=== PATIENT | male | born 1995 | race Two or more races ===

== ENCOUNTER 2019-08-26 19:17 | Emergency (ER) | payer SELFPAY ==
[~2019-08-26] VITALS: Ht 182.9 cm; Wt 95.3 kg
[2019-08-26 19:21] VITALS: BP 122/82
--- NOTE | 2019-08-26 19:21 | Emergency Room Report ---
History of Present Illness General Source: Patient Present Illness HPI Is a 23-year-old male presents after increased right-sided shoulder pain. Patient was lifting weights when suddenly he felt sharp pain to the right shoulder with decreased ability to move it. Denies any other locations of injury. Denies prior dislocation. Injury occurred just prior to arrival Allergies: Coded Allergies: No Known Allergies (Unverified , 08/26/19) Patient History Past Medical History: see triage record Reviewed Nursing Documentation: PMH: Agreed; PSxH: Agreed Review of Systems All Other Systems: negative except mentioned in HPI Physical Exam General Appearance: well appearing, no apparent distress, alert, GCS 15 Head: normocephalic, atraumatic ENT: hearing grossly normal, normal voice Neck: full range of motion, supple Respiratory: no respiratory distress, speaking full sentences Cardiovascular #1: normal inspection Gastrointestinal: normal inspection Musculoskeletal: gait/station normal, decreased range of mation - Anterior fullness, held in abduction Neurologic: alert, motor strength/tone normal, clinical systems educator III-XII nml as tested, normal gait Psychiatric: mood/affect normal Skin: no rash Medical Decision Making Diagnostic Impression: Primary Impression: Shoulder dislocation ER Course Patient presented for right-sided shoulder pain. Differential diagnoses included was not limited to fracture, dislocation, a.c. separation, septic joint. Patient was noted to have what appears to be a anterior shoulder dislocation. Patient shoulder was reduced with Zavala technique. Patient reports having improved range of motion subsequently. Patient given ibuprofen for pain.Patient was placed in a sling. Post procedure x-ray showed adequate reduction without evident fracture. Patient was advised to follow-up with orthopedics for recheck. He is advised not to patient was given care precautions and range of motion precautions. He was advised to return if worse. The patient is advised to follow up with primary care doctor in 1-2 days. Patient is advised to return if any worsening condition or if any changes in status that are concerning. This report is dictated with [employer] electrical solderer software which may occasionally lead to discrepancies related to use of this software. Status: improved Disposition: HOME, SELF-CARE Condition: Stable Scripts Acetaminophen (PAIN RELIEVER) 500 Mg Tablet 500 MG PO EVERY 6 HOURS for pain, #30 TAB Prov: Reza Aragon MD 08/26/19 Ibuprofen* (MOTRIN*) 600 Mg Tablet 600 MG ORAL Q8H PRN for For Pain, #30 TAB 0 Refills Prov: Reza Aragon MD 08/26/19 Reza Aragon MD Aug 26, 2019 19:21
[2019-08-26] MEDS ORDERED: IBUPROFEN600 MG ORAL (19:23)
[2019-08-26] MEDS ORDERED: PAIN RELIEVER500 M1 PO (19:23)
--- NOTE | 2019-08-26 19:27 | NUR ---
ED Nurse Note: Patient taken to xray
[2019-08-26 20:23] VITALS: BP 125/98
--- NOTE | 2019-08-26 20:25 | NUR ---
ER DISCHARGE NOTE: Patient is cleared to be discharged per ERMD, pt is aox4, on room air, with stable vital signs. pt was given dc and prescription instructions, pt was able to verbalize understanding, pt id band removed. pt is able to ambulate with steady gait. pt took all belongings. pt provided with arm sling and instructions, verbalized understanding. pt stable upon discharge.
--- NOTE | 2019-08-26 20:34 | Diagnostic Imaging Report ---
EXAM: XR Right Shoulder Complete, 2 or More Views CLINICAL HISTORY: PAIN TECHNIQUE: Two or more views of the right shoulder. COMPARISON: No relevant prior studies available. FINDINGS: Ribs are normal. Right chest is normal. Glenohumeral joint is normal. Soft tissues are unremarkable. IMPRESSION: 1. No focal findings
== END 2019-08-26 20:23 | disposition home or self-care (01) ==
LOC: EDBD 19:17 → EMR 20:18
DX: S43.004A Unspecified dislocation of right shoulder joint, initial encounter (principal); X50.0XXA Overexertion from strenuous movement or load, initial encounter; Y93.B3 Activity, free weights; Y92.9 Unspecified place or not applicable
CPT/HCPCS: 99283